=== PATIENT | male | born 1950 | race Caucasian/White ===

== ENCOUNTER 2020-03-02 14:07 | Emergency (ER) | payer MEDICARE, OTHER ==
[~2020-03-02] VITALS: Ht 177.8 cm; Wt 104.5 kg
[2020-03-02] MEDS ORDERED: ceFAZolin/D5W- 1GM premix 50 ML IV STA (14:15)
[2020-03-02] MEDS ORDERED: TETanus/Pertussis (Acell)/Diphther VAC/PF (Tdap-Adult) 0.5ml syringe IMVAC ONE (14:15)
[2020-03-02] MEDS ORDERED: HYDROcodone/acetaminophen 10/325mg tab PO ONE (14:15)
[2020-03-02] MEDS ORDERED: LIDOcaine 1% W/epiNEPHrine 1:200,000 10ml vial IJ ONE (15:35)
[2020-03-02] MEDS ORDERED: LIDOcaine 1% w/epiNEPHrine 1:200,000 30ml vial IJ ONE (15:40)
[2020-03-02] MEDS ORDERED: HYDR-4353 PO (17:38)
[2020-03-02] MEDS ORDERED: CEPH500C5 PO (17:38)
[2020-03-02] MEDS ORDERED: HYDROcodone/acetaminophen 5mg/325mg tablet PO ONE (18:05)
[2020-03-02 18:15] VITALS: BP 173/102
== END 2020-03-02 18:16 | disposition home or self-care (01) ==
LOC: ER 14:07
DX: S68.115A Complete traumatic metacarpophalangeal amputation of left ring finger, initial encounter (principal); Z79.2 Long term (current) use of antibiotics; Z79.899 Other long term (current) drug therapy; W45.8XXA Other foreign body or object entering through skin, initial encounter; Y93.89 Activity, other specified; Y92.89 Other specified places as the place of occurrence of the external cause; Y99.8 Other external cause status
CPT/HCPCS: 12002; 73140; 90471; 90715; 96365; 96366; 99284; J0690